=== PATIENT | female | born 2000 | race Two or more races ===

== ENCOUNTER 2024-10-06 02:04 | Emergency (ER) | payer MEDICAID, SELFPAY ==
[2024-10-06 02:07] VITALS: BP 121/76; PULSE 96; RESP 20; TEMP 36.1; O2SAT 98; BMI 28.7
[2024-10-06 02:30] LABS: MANUAL DIFF FLAG NO
[2024-10-06 02:51] LABS: Basophils Absolute Auto 0.1 X10*3/uL (0.0-0.2); Basophils Percent Auto 0.4 % (0-2); Eosinophils Absolute Auto 0.1 X10*3/uL (0.0-0.4); Eosinophils Percent Auto 0.8 % (0-4); Hematocrit 48.5 % (37.0-47.0); Imm Gran Abs Auto 0.07 X10*3/uL (0.00-0.03); Imm Gran Pct Auto 0.5 % (0.0-0.4); Lymphocytes Absolute Auto 1.7 X10*3/uL (1.2-4.9); Lymphocytes Percent Auto 10.9 % (20-40); Mean Corpuscular Hemoglobin 27.7 pg (27.0-33.0); Mean Corpuscular Volume 84.1 fL (80.0-98.0); Mean Platelet Volume 10.2 fL (9.4-12.3); Monocytes Percent Auto 6.5 % (2-11); Neutrophils Absolute Auto 12.4 x10*3/uL (2.0-8.3); Neutrophils Percent Auto 80.9 % (45-73); Platelet Count 385 X10*3/uL (160-400); Red Blood Count 5.77 X10*6/uL (4.20-5.50); Red Cell Distribution Width 13.4 % (11.0-16.0); White Blood Count 15.3 X10*3/uL (4.8-10.8)
[2024-10-06 03:01] LABS: Alanine Aminotransferase 18 U/L (0-31); Alkaline Phosphatase 84 U/L (39-117); Anion Gap 14 (12-20); Aspartate Amino Transferase 18 U/L (5-31); Bilirubin Total 0.7 mg/dL (0.0-1.0); Blood Urea Nitrogen 15 mg/dL (9-16); Calcium 9.9 mg/dL (8.4-10.2); Carbon Dioxide 20 mmol/L (22-29); Chloride 111 mmol/L (96-108); Creatinine Clr Calc Pharmacy 122.2; Estimated Glomerular Filt Rate > 60; Glucose Random 106 mg/dL (60-115); Lipase 17 U/L (8-78); Potassium 3.8 mmol/L (3.3-5.1); Sodium 141 mmol/L (135-145); Total Protein 7.6 g/dL (6.5-8.0)
[2024-10-06 03:11] LABS: Influenza A PCR NEGATIVE (Negative); Influenza B PCR NEGATIVE (Negative); Resp Syncy Virus RNA Qual PCR NEGATIVE (Negative); SARS COV2 PCR INHOUSE NEGATIVE (Negative)
[2024-10-06 04:28] LABS: IDNOW Serial# 6674DD1D
[2024-10-06 04:29] LABS: Appearance Urine Cloudy; Color Urine Dark Yellow; Glucose Urine UA Negative (Negative); Leukocyte Esterase Urine Trace (Negative); Nitrite Urine Negative (Negative); Specific Gravity - Urine >= 1.030 (1.005-1.025); UMIC TRIGGER UACC YES; UPreg QC Valid YES; Urine Blood Small (1+) (Negative); Urine Ketones Trace mg/dL (Negative); Urine Pregnancy NEGATIVE (NEGATIVE); Urine Protein Trace mg/dL (Neg-Trace)
[2024-10-06 04:29] LABS: Strep A Nucleic Acid Positive (Negative)
[2024-10-06 04:34] LABS: Bacteria Urine 1+ (None Seen); RBC Urine >20 /HPF (0-2); Squamous Epithelial Cell Urine 0-2 /HPF (0-2); WBC Urine 0-5 /HPF (0-5)
--- NOTE | 2024-10-06 05:38 | ED.NAVMDI ---
HPI - Nausea/Vomiting/Diarrhea General Chief complaint: Nausea/Vomiting/Diarrhea Stated complaint: vomiting blood, chills Time Seen by Provider: 10/06/24 05:32 Source: patient Mode of arrival: ambulatory Limitations: no limitations History of Present Illness ED Provider: HPI Narrative: Patient with sore throat for last 3 days with cough nausea vomiting for 1 day low-grade fever strep test done which was positive Related Data Previous Rx's ?Medication ?Instructions ?Recorded amoxicillin 875 mg-potassium 1 tab PO BID #20 tabs 10/06/24 clavulanate 125 mg tablet ondansetron 4 mg disintegrating 4 mg PO Q6-8H PRN nausea and 10/06/24 tablet vomiting #7 tabs Allergies Allergy/AdvReac Type Severity Reaction Status Date / Time No Known Allergies Allergy Verified 10/06/24 02:09 Review of Systems Review of Systems: Yes all other systems are reviewed and are negative [facility] Social History Social History Unable to assess alcohol history related to: Unknown Use of substances other than those prescribed or required for medical reasons: No Advance Directives: No Advance Directives Information Provided: Yes Do you have a plan to hurt others: No Plan Physical Exam Vital Signs: Vital Signs: Last Vital Signs Temp 97.0 F 10/06/24 05:53 Pulse 96 10/06/24 05:53 Resp 20 10/06/24 05:53 BP 121/76 10/06/24 05:53 Pulse Ox 98 10/06/24 05:53 O2 Del Method Room Air 10/06/24 05:53 BMI result Body Mass Index 28.7 Appearance: Alert. Oriented X3. No acute distress. Eyes: no pallor or icterus ENT: Pharynx erythematous no exudate. Oral Mucosa moist Neck: Normal inspection. Neck supple. CVS: Normal heart rate and rhythm. Pulses normal. Respiratory: No respiratory distress. Equal air entry bilateral, no wheezing/rales/rhonchi Abd: soft, not tender Skin: Skin warm and dry. Normal skin color. Normal skin turgor. Extremities: No lower extremity edema, no calf tenderness Neuro: Oriented X 3. Medications Administered Discontinued Medications Generic Name Dose Route Start Last Admin Trade Name Freq PRN Reason Stop Dose Admin Amoxicillin/Clavulanate Potassium 875 mg 10/06/24 05:38 10/06/24 05:51 Amoxicillin/Potassium Clav 875 Mg Tablet PO 10/06/24 05:39 875 mg ONCE ONE Administration Ondansetron HCl 4 mg 10/06/24 05:38 10/06/24 05:51 Ondansetron Odt 4 Mg Tab.Darrendis TRANSLINGU 10/06/24 05:39 4 mg ONCE ONE Administration Medical Decision Making Medical Decision Making MDM Narrative: Patient's strep throat will prescribe Augmentin Lab Data MDM Lab Attestation statement: I reviewed the patient's lab results. 10/06/24 02:25 10/06/24 02:26 Labs: Lab Results 10/06/24 10/06/24 10/06/24 Range/Units 02:25 02:26 04:12 WBC 15.3 H (4.8-10.8) X10*3/uL RBC 5.77 H (4.20-5.50) X10*6/uL Hgb 16.0 (12.0-16.0) g/dl Hct 48.5 H (37.0-47.0) % MCV 84.1 (80.0-98.0) fL MCH 27.7 (27.0-33.0) pg MCHC 33.0 (31.0-35.0) g/dl RDW 13.4 (11.0-16.0) % Plt Count 385 (160-400) X10*3/uL MPV 10.2 (9.4-12.3) fL Immature Gran % (Auto) 0.5 H (0.0-0.4) % Neut % (Auto) 80.9 H (45-73) % Lymph % (Auto) 10.9 L (20-40) % [place] % (Auto) 6.5 (2-11) % Eos % (Auto) 0.8 (0-4) % Baso % (Auto) 0.4 (0-2) % Lymph # (Auto) 1.7 (1.2-4.9) X10*3/uL [place] # (Auto) 1.0 (0.1-1.2) X10*3/uL Eos # (Auto) 0.1 (0.0-0.4) X10*3/uL Baso # (Auto) 0.1 (0.0-0.2) X10*3/uL Abs Immat Gran (auto) 0.07 H (0.00-0.03) X10*3/uL Absolute Neuts (auto) 12.4 H (2.0-8.3) x10*3/uL Absolute Nucleated RBC 0.000 (0.0-0.012) X10*3/uL Nucleated RBC % (auto) 0.0 (0.0-0.2) /100WBC Sodium 141 (135-145) mmol/L Potassium 3.8 (3.3-5.1) mmol/L Chloride 111 H (96-108) mmol/L Carbon Dioxide 20 L (22-29) mmol/L Anion Gap 14 (12-20) BUN 15 (9-16) mg/dL Creatinine 0.74 (0.5-1.4) mg/dL Estim Creat Clear Calc 122.2 Estimated GFR > 60 Random Glucose 106 (60-115) mg/dL Calcium 9.9 (8.4-10.2) mg/dL Total Bilirubin 0.7 (0.0-1.0) mg/dL AST 18 (5-31) U/L ALT 18 (0-31) U/L Alkaline Phosphatase 84 (39-117) U/L Total Protein 7.6 (6.5-8.0) g/dL Albumin 4.0 (3.5-5.0) g/dL Lipase 17 (8-78) U/L Urine Color Urine Appearance Urine pH (5.0-9.0) Ur Specific [place] (1.005-1.025) Urine Protein (Neg-Trace) mg/dL Urine Glucose (UA) (Negative) mg/dL Urine Ketones (Negative) mg/dL Urine Blood (Negative) Urine Nitrite (Negative) Ur Leukocyte Esterase (Negative) Urine RBC (0-2) /HPF Urine WBC (0-5) /HPF Ur Squamous Epith Cells (0-2) /HPF Urine Bacteria (None Seen) Hyaline Casts (0-2) /LPF Urine Test (NEGATIVE) Influenza Type A (PCR) NEGATIVE (Negative) Influenza Type B (PCR) NEGATIVE (Negative) RSV RNA Qual (PCR) NEGATIVE (Negative) SARS-CoV-2 RNA (RT-PCR) NEGATIVE (Negative) S. pyogenes GrpA ALBARO Positive A (Negative) 10/06/24 Range/Units 04:24 WBC (4.8-10.8) X10*3/uL RBC (4.20-5.50) X10*6/uL Hgb (12.0-16.0) g/dl Hct (37.0-47.0) % MCV (80.0-98.0) fL MCH (27.0-33.0) pg MCHC (31.0-35.0) g/dl RDW (11.0-16.0) % Plt Count (160-400) X10*3/uL MPV (9.4-12.3) fL Immature Gran % (Auto) (0.0-0.4) % Neut % (Auto) (45-73) % Lymph % (Auto) (20-40) % [place] % (Auto) (2-11) % Eos % (Auto) (0-4) % Baso % (Auto) (0-2) % Lymph # (Auto) (1.2-4.9) X10*3/uL [place] # (Auto) (0.1-1.2) X10*3/uL Eos # (Auto) (0.0-0.4) X10*3/uL Baso # (Auto) (0.0-0.2) X10*3/uL Abs Immat Gran (auto) (0.00-0.03) X10*3/uL Absolute Neuts (auto) (2.0-8.3) x10*3/uL Absolute Nucleated RBC (0.0-0.012) X10*3/uL Nucleated RBC % (auto) (0.0-0.2) /100WBC Sodium (135-145) mmol/L Potassium (3.3-5.1) mmol/L Chloride (96-108) mmol/L Carbon Dioxide (22-29) mmol/L Anion Gap (12-20) BUN (9-16) mg/dL Creatinine (0.5-1.4) mg/dL Estim Creat Clear Calc Estimated GFR Random Glucose (60-115) mg/dL Calcium (8.4-10.2) mg/dL Total Bilirubin (0.0-1.0) mg/dL AST (5-31) U/L ALT (0-31) U/L Alkaline Phosphatase (39-117) U/L Total Protein (6.5-8.0) g/dL Albumin (3.5-5.0) g/dL Lipase (8-78) U/L Urine Color Dark Yellow Urine Appearance Cloudy Urine pH 6.0 (5.0-9.0) Ur Specific [place] >= 1.030 H (1.005-1.025) Urine Protein Trace (Neg-Trace) mg/dL Urine Glucose (UA) Negative (Negative) mg/dL Urine Ketones Trace (Negative) mg/dL Urine Blood Small (1+) H (Negative) Urine Nitrite Negative (Negative) Ur Leukocyte Esterase Trace H (Negative) Urine RBC >20 H (0-2) /HPF Urine WBC 0-5 (0-5) /HPF Ur Squamous Epith Cells 0-2 (0-2) /HPF Urine Bacteria 1+ (None Seen) Hyaline Casts 3-5 (0-2) /LPF Urine Test NEGATIVE (NEGATIVE) Influenza Type A (PCR) (Negative) Influenza Type B (PCR) (Negative) RSV RNA Qual (PCR) (Negative) SARS-CoV-2 RNA (RT-PCR) (Negative) S. pyogenes GrpA ALBARO (Negative) Discharge Plan Discharge Clinical Impression: Acute streptococcal pharyngitis, Vomiting Patient Disposition: Home, Self-Care Instructions: Strep Throat (ED), Acute Nausea and Vomiting (ED) Additional Instructions: Drink plenty of fluids Antibiotic as prescribed Medicine for nausea as prescribed You have strep throat likely the cause for the vomiting Prescriptions: New ondansetron 4 mg tablet,disintegrating 4 mg PO Q6-8H PRN (Reason: nausea and vomiting) Qty: 7 0RF amoxicillin-pot clavulanate 875-125 mg tablet 1 tab PO BID Qty: 20 0RF Stand Alone Forms: Work/School Release Interventions: ED Discharge Assessment Last Done: 10/06/24 05:53 Discharge Date/Time: 10/06/24 05:56 Print Language: Cymro
[2024-10-06] MEDS: Ondansetron ODT 4 MG TAB.RAPDIS TRANSLINGU (05:51)
[2024-10-06] MEDS: Amoxicillin/Potassium Clav 875 MG TABLET PO (05:51)
[2024-10-06 05:53] VITALS: BP 121/76; PULSE 96; RESP 20; TEMP 36.1; O2SAT 98
== END 2024-10-06 05:56 | disposition home or self-care (01) ==
PROVIDERS: Emergency Provider Internal Medicine
DX: J02.0 Streptococcal pharyngitis (principal); R11.2 Nausea with vomiting, unspecified; R05.9 Cough, unspecified; Z03.818 Encounter for observation for suspected exposure to other biological agents ruled out
CPT/HCPCS: 0241U; 80053; 81001; 81025; 83690; 85025; 87651; 99283; 99284

== ENCOUNTER 2024-11-15 15:16 | Emergency (ER) | payer MEDICAID, SELFPAY ==
--- NOTE | ~2024-11-15 | US_ITS ---
CLINICAL HISTORY: R PELVIC PAIN Ultrasound pelvis transabdominal and transvaginal. COMPARISON: None Technique: Real time sonographic imaging, including color-flow imaging, was performed by the plate slitter and inspector. Multiple credit and collections representative static images were saved for review. FINDINGS: Anteverted uterus appears normal and measures 6.5 x 2.4 x 4.3 cm. No uterine fibroids identified. Endometrium: 6 mm, normal. Right ovary appears normal and measures 2.6 x 1.9 x 1.6 cm. Normal color and spectral Doppler. No right adnexal mass identified. Normal appearing physiologic follicles/cysts. Left ovary appears normal and measures 2.7 x 1.4 x 1.6 cm. Normal color and spectral Doppler. No left adnexal mass identified. Normal appearing physiologic follicles/cysts. No free fluid identified in the pelvic cul-de-sac. IMPRESSION: 1. No cause for patient's symptoms identified. No evidence of ovarian torsion. This document has been electronically signed by: Luis Daniel Lowery MD on 11/15/2024 19:37:55
--- NOTE | ~2024-11-15 | US_ITS ---
CLINICAL HISTORY: R PELVIC PAIN Ultrasound pelvis transabdominal and transvaginal. COMPARISON: None Technique: Real time sonographic imaging, including color-flow imaging, was performed by the application analyst. Multiple telemarketing sales representative static images were saved for review. FINDINGS: Anteverted uterus appears normal and measures 6.5 x 2.4 x 4.3 cm. No uterine fibroids identified. Endometrium: 6 mm, normal. Right ovary appears normal and measures 2.6 x 1.9 x 1.6 cm. Normal color and spectral Doppler. No right adnexal mass identified. Normal appearing physiologic follicles/cysts. Left ovary appears normal and measures 2.7 x 1.4 x 1.6 cm. Normal color and spectral Doppler. No left adnexal mass identified. Normal appearing physiologic follicles/cysts. No free fluid identified in the pelvic cul-de-sac. IMPRESSION: 1. No cause for patient's symptoms identified. No evidence of ovarian torsion. This document has been electronically signed by: Luis Daniel Lowery MD on 11/15/2024 19:37:55
--- NOTE | 2024-11-15 15:36 | ED_ITS ---
HPI - Abdominal Pain General Chief Complaint: Vaginal Bleeding Stated Complaint: vag bleed Time Seen by Provider: 11/15/24 18:18 Related Data Previous Rx's ?Medication ?Instructions ?Recorded amoxicillin 875 mg-potassium 1 tab PO BID #20 tabs 10/06/24 clavulanate 125 mg tablet ondansetron 4 mg disintegrating 4 mg PO Q6-8H PRN nausea and 10/06/24 tablet vomiting #7 tabs Allergies Allergy/AdvReac Type Severity Reaction Status Date / Time No Known Allergies Allergy Verified 11/15/24 15:39 [facility] Social History Social History Unable to assess alcohol history related to: Unknown Physical Exam ED Vital Signs: BMI result Body Mass Index 29.7 Course Course Course Narrative: This is a Rapid Medical Exam performed in triage by Rosario Ochoa PA-C. Full HPI, ROS and PE to be performed by primary ED provider. 24yo F w/PMHx cholecystectomy presenting to the ED c/o bright red vaginal bleeding since Tuesday w/clots & assoc lower abdominal pain > right side radiating to back. States when wipes has blood on tissue. LMP 3/14 w/possible + home test at home. went to [facility] yesterday and LWCT PE: abdomen soft w/RLQ/suprapubic ttp. no rebound or guarding. Plan: labs, UA, US Medical Decision Making Lab Data 11/15/24 17:33 11/15/24 17:33 Labs: Lab Results 11/15/24 Range/Units 17:33 WBC 11.9 H (4.8-10.8) X10*3/uL RBC 5.30 (4.20-5.50) X10*6/uL Hgb 14.7 (12.0-16.0) g/dl Hct 43.4 (37.0-47.0) % MCV 81.9 (80.0-98.0) fL MCH 27.7 (27.0-33.0) pg MCHC 33.9 (31.0-35.0) g/dl RDW 13.8 (11.0-16.0) % Plt Count 404 H (160-400) X10*3/uL MPV 9.6 (9.4-12.3) fL Immature Gran % (Auto) 0.3 (0.0-0.4) % Neut % (Auto) 65.0 (45-73) % Lymph % (Auto) 26.2 (20-40) % [place] % (Auto) 6.9 (2-11) % Eos % (Auto) 1.1 (0-4) % Baso % (Auto) 0.5 (0-2) % Lymph # (Auto) 3.1 (1.2-4.9) X10*3/uL [place] # (Auto) 0.8 (0.1-1.2) X10*3/uL Eos # (Auto) 0.1 (0.0-0.4) X10*3/uL Baso # (Auto) 0.1 (0.0-0.2) X10*3/uL Abs Immat Gran (auto) 0.04 H (0.00-0.03) X10*3/uL Absolute Neuts (auto) 7.8 (2.0-8.3) x10*3/uL Absolute Nucleated RBC 0.000 (0.0-0.012) X10*3/uL Nucleated RBC % (auto) 0.0 (0.0-0.2) /100WBC Sodium 142 (135-145) mmol/L Potassium 4.0 (3.3-5.1) mmol/L Chloride 109 H (96-108) mmol/L Carbon Dioxide 24 (22-29) mmol/L Anion Gap 13 (12-20) BUN 14 (9-16) mg/dL Creatinine 0.68 (0.5-1.4) mg/dL Estim Creat Clear Calc 135.2 Estimated GFR > 60 Random Glucose 90 (60-115) mg/dL Calcium 9.4 (8.4-10.2) mg/dL Magnesium 2.2 (1.6-2.6) mg/dL Total Bilirubin 0.2 (0.0-1.0) mg/dL Direct Bilirubin < 0.2 (0.0-0.5) mg/dL AST 20 (5-31) U/L ALT 24 (0-31) U/L Alkaline Phosphatase 98 (39-117) U/L Total Protein 7.3 (6.5-8.0) g/dL Albumin 4.1 (3.5-5.0) g/dL Lipase 21 (8-78) U/L Beta HCG, Quant < 2 mIU/mL Urine Color Yellow Urine Appearance Clear Urine pH 6.5 (5.0-9.0) Ur Specific [place] 1.025 (1.005-1.025) Urine Protein Negative (Neg-Trace) mg/dL Urine Glucose (UA) Negative (Negative) mg/dL Urine Ketones Negative (Negative) mg/dL Urine Blood Negative (Negative) Urine Nitrite Negative (Negative) Ur Leukocyte Esterase Negative (Negative) Chlam trachomat DNA PCR NOT DETECTED (Not Detect.) N.gonorrhoeae DNA (PCR) NOT DETECTED (Not Detect.) Blood Type O Positive Discharge Plan Discharge Clinical Impression: Vaginal bleeding, Dysfunctional uterine bleeding Patient Disposition: Home, Self-Care Instructions: Dysfunctional Uterine Bleeding (ED) Additional Instructions: recommend follow-up with OBGYN and primary care provider. Return to the ED immediately for any abdominal pain, nausea, vomiting, fever, chills, flank pain, worsening vaginal bleeding, or any other concerning symptoms. Ultrasound pelvis transabdominal and transvaginal. COMPARISON: None Technique: Real time sonographic imaging, including color-flow imaging, was performed by the sustainability analyst. Multiple volunteer patient representative static images were saved for review. FINDINGS: Anteverted uterus appears normal and measures 6.5 x 2.4 x 4.3 cm. No uterine fibroids identified. Endometrium: 6 mm, normal. Right ovary appears normal and measures 2.6 x 1.9 x 1.6 cm. Normal color and spectral Doppler. No right adnexal mass identified. Normal appearing physiologic follicles/cysts. Left ovary appears normal and measures 2.7 x 1.4 x 1.6 cm. Normal color and spectral Doppler. No left adnexal mass identified. Normal appearing physiologic follicles/cysts. No free fluid identified in the pelvic cul-de-sac. IMPRESSION: 1. No cause for patient's symptoms identified. No evidence of ovarian torsion. This document has been electronically signed by: Luis Daniel Lowery MD on 11/15/2024 19:37:55 Dictated By: Luis Daniel Lowery MD Signed By: <Electronically signed by Luis Daniel Lowery MD in OV> 11/15/241938 Prescriptions: No Action ondansetron 4 mg tablet,disintegrating 4 mg PO Q6-8H PRN (Reason: nausea and vomiting) Qty: 7 0RF amoxicillin-pot clavulanate 875-125 mg tablet 1 tab PO BID Qty: 20 0RF Referrals: Vazquez Moore MD [Physician] - (dysfunctional urterine bleeding) Stand Alone Forms: Work/School Release Interventions: ED Discharge Assessment Last Done: 11/15/24 20:43 Discharge Date/Time: 11/15/24 20:43 Print Language: Turkish
[2024-11-15 15:37] VITALS: BP 107/65; PULSE 82; RESP 16; TEMP 36.6; O2SAT 97; BMI 29.7
[2024-11-15 17:41] LABS: MANUAL DIFF FLAG NO
[2024-11-15 17:45] LABS: Appearance Urine Clear; Color Urine Yellow; Glucose Urine UA Negative (Negative); Leukocyte Esterase Urine Negative (Negative); Nitrite Urine Negative (Negative); PH 6.5 (5.0-9.0); Specific Gravity - Urine 1.025 (1.005-1.025); Urine Blood Negative (Negative); Urine Ketones Negative (Negative); Urine Protein Negative (Neg-Trace)
[2024-11-15 17:48] LABS: Basophils Absolute Auto 0.1 X10*3/uL (0.0-0.2); Basophils Percent Auto 0.5 % (0-2); Eosinophils Absolute Auto 0.1 X10*3/uL (0.0-0.4); Eosinophils Percent Auto 1.1 % (0-4); Hematocrit 43.4 % (37.0-47.0); Hemoglobin 14.7 g/dl (12.0-16.0); Imm Gran Abs Auto 0.04 X10*3/uL (0.00-0.03); Imm Gran Pct Auto 0.3 % (0.0-0.4); Lymphocytes Absolute Auto 3.1 X10*3/uL (1.2-4.9); Lymphocytes Percent Auto 26.2 % (20-40); Mean Corpuscular HGB Conc 33.9 g/dl (31.0-35.0); Mean Corpuscular Hemoglobin 27.7 pg (27.0-33.0); Mean Corpuscular Volume 81.9 fL (80.0-98.0); Mean Platelet Volume 9.6 fL (9.4-12.3); Monocytes Absolute Auto 0.8 X10*3/uL (0.1-1.2); Monocytes Percent Auto 6.9 % (2-11); Neutrophils Absolute Auto 7.8 x10*3/uL (2.0-8.3); Platelet Count 404 X10*3/uL (160-400); Red Cell Distribution Width 13.8 % (11.0-16.0); White Blood Count 11.9 X10*3/uL (4.8-10.8)
[2024-11-15 18:08] LABS: Alanine Aminotransferase 24 U/L (0-31); Albumin Level 4.1 g/dL (3.5-5.0); Alkaline Phosphatase 98 U/L (39-117); Anion Gap 13 (12-20); Aspartate Amino Transferase 20 U/L (5-31); Bilirubin Direct < 0.2 mg/dL (0.0-0.5); Bilirubin Total 0.2 mg/dL (0.0-1.0); Blood Urea Nitrogen 14 mg/dL (9-16); Calcium 9.4 mg/dL (8.4-10.2); Carbon Dioxide 24 mmol/L (22-29); Chloride 109 mmol/L (96-108); Creatinine Clr Calc Pharmacy 135.2; Estimated Glomerular Filt Rate > 60; Glucose Random 90 mg/dL (60-115); Lipase 21 U/L (8-78); Magnesium 2.2 mg/dL (1.6-2.6); Sodium 142 mmol/L (135-145); Total Protein 7.3 g/dL (6.5-8.0)
[2024-11-15 18:12] LABS: HCG Quantitative < 2 mIU/mL
--- OUTSIDE RECORDS SUMMARY | 2024-11-15 18:16 | XMS_ITS | Clinical Summary ---
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 Name Role Phone Unavailable Primary Care Provider Unavailabl e Social History Tobacco Use Types Packs/Day Years Used Date Smoking Tobacco: Never Assessed Comments Unknown Sex and Gender Information Value Date Recorded Sex Assigned at Not on file Legal Sex Female 3:10 PM EST Gender Identity Not on file Sexual Orientation Not on file Plan of Treatment Health Maintenance Due Date Last Done Comments Gonorrhea/Chlamydia Screening 2001 HPV Vaccines (1 - 3-dose series) 01/21/2016 Meningococcal B Vaccine (1 o f 2 - Standard) 2017 DTaP,Tdap,and Td Vaccines (1 - Tdap) 01/21/2020 Hepatitis B Vaccines (1 of 3 - 19+ 3-dose series) 01/21/2020 Cervical Cancer Screening: P ap Smear 2022 Depression Screening 07/07/2022 HIV Screening 07/07/2022 Hepatitis C Screening 07/07/2022 Social Influencers of Health Screening 07/07/2022 COVID-19 Vaccine (1 - 2023-2 5 season) 2024 Influenza Vaccine (Season Ended) 2025 HIB Vaccines Aged Out No longer eligi ble based on patient's age to complete this topic Hepatitis A Vaccines Aged Out No long er eligible based on patient's age to complete this topic IPV Vaccines Aged Out No longer eligi ble based on patient's age to complete this topic MMR Vaccines Aged Out No longer eligi ble based on patient's age to complete this topic Meningococcal ACWY Vaccine Aged Out N o longer eligible based on patient's age to complete this topic Pneumococcal Vaccine: Pediat rics (0 to 5 Years) and At-Risk Patients (6 to 64 Years) Aged Out No longer eligible b ased on patient's age to complete this topic RSV Immunization Patients Un monique 20 months Aged Out No longer eligible b ased on patient's age to complete this topic Varicella Vaccines Aged Out No longer eligible based on patient's age to complete this topic
--- NOTE | 2024-11-15 18:37 | ED_ITS ---
HPI - General Adult General Chief complaint: Vaginal Bleeding Stated complaint: vag bleed Time Seen by Provider: 11/15/24 18:18 Source: patient Mode of arrival: ambulatory Limitations: no limitations History of Present Illness ED Provider: Pako Mackenzie [facility] narrative: 24-year-old female history of hypothyroidism presents to ED for vaginal bleeding for 4 days with blood clots. Patient states she is trying to get . Patient states nausea and slight lower abdominal cramping. Patient denies any recent trauma. Related Data Previous Rx's ?Medication ?Instructions ?Recorded amoxicillin 875 mg-potassium 1 tab PO BID #20 tabs 10/06/24 clavulanate 125 mg tablet ondansetron 4 mg disintegrating 4 mg PO Q6-8H PRN nausea and 10/06/24 tablet vomiting #7 tabs Allergies Allergy/AdvReac Type Severity Reaction Status Date / Time No Known Allergies Allergy Verified 11/15/24 15:39 Review of Systems 2 Review of Systems: Vaginal bleeding Yes all other systems are reviewed and are negative PMFSH Social History Social History Unable to assess alcohol history related to: Unknown Physical Exam ED Vital Signs: Vital Signs - 24 hr 11/15/24 15:37 11/15/24 18:55 Temperature 97.9 F 97.3 F Pulse Rate 82 62 Respiratory Rate 16 12 Blood Pressure 107/65 97/62 Pulse Oximetry 97 100 Oxygen Delivery Method Room Air Room Air BMI result Body Mass Index 29.7 Const General: cooperative, healthy appearing, comfortable, no acute distress, well developed, alert, awake and Physically active Orientation/consciousness: patient oriented x3 HENMT Head: Yes normal to inspection, Yes No palpable skull fracture present, Yes normocephalic, Yes atraumatic and No abrasion Eyes General: appearance normal, both eyes and all related structures Neck Neck: Yes normal visual inspection, Yes full ROM, Yes no lymphadenopathy, Yes no meningeal signs, Yes trachea midline, Yes supple, No anterior neck swelling and No tender Chest Chest palpation & inspection: normal inspection of the chest and normal palpation of entire chest wall Resp Effort & Inspection: normal respiratory effort and able to speak in complete sentences Auscultation: clear to auscultation bilaterally Cardio Jugular venous distension: no JVD Heart sounds: S1 normal heart sound present and S2 normal heart sound present GI Inspection: Yes normal to inspection Palpation (GI): Soft to palpation, not firm, nontender, no guarding and not rigid General: Yes no CVA tenderness External Female Exam: normal external appearance Speculum Exam - Vagina: normal appearance of the vagina and vaginal bleeding (slight blood in vaginal vault and from cervix) Speculum Exam - Cervix: normal appearance of the cervix OB/external & speculum: vaginal bleeding (slight blood in vaginal vault and from cervix) Back/Spine/Pelvis Back: no CVA tenderness and No back tenderness Skin General skin exam: no rashes or lesions noted, elasticity normal and turgor normal Neuro General: patient oriented x3, gait normal, tone normal, moves all extremities, Normal light touch and pain sensation, no meningeal signs, no focal motor deficits, CN's II-XI intact bilaterally and normal sensation to monofilament Extrem General: Yes normal to inspection, Yes full ROM and Yes capillary refill normal Psych Appearance: grossly normal, well kempt and not disheveled Medical Decision Making Medical Decision Making [facility] Narrative: 24-year-old female presents to ED for vaginal bleeding with blood clots for the past 4 days. Beta hCG is negative. Vital signs stable. Patient is hemodynamically stable. Ultrasound pending. 8:10pm: Pelvic exam benign. Ultrasound negative for fibroids ovarian cysts. Patient informed to follow up with OBGYN. Not suspecting hemorrhaging. history physical exam diagnostic negative for signs of fibroids, ovarian rupture, or ectopic . patient explained worrisome signs and informed to return to the ED immediately. Differential Diagnosis Differential Diagnoses: The differential diagnosis associated with the presentation includes ( Ectopic , ovarian cysts, fibroid, UTI, kidney stone) Admission/Observation Consideration of admission/observation: Escalation of care including admission/observation considered Lab Data [facility] Lab Attestation statement: I reviewed the patient's lab results. 11/15/24 17:33 11/15/24 17:33 Labs: Lab Results 11/15/24 Range/Units 17:33 WBC 11.9 H (4.8-10.8) X10*3/uL RBC 5.30 (4.20-5.50) X10*6/uL Hgb 14.7 (12.0-16.0) g/dl Hct 43.4 (37.0-47.0) % MCV 81.9 (80.0-98.0) fL MCH 27.7 (27.0-33.0) pg MCHC 33.9 (31.0-35.0) g/dl RDW 13.8 (11.0-16.0) % Plt Count 404 H (160-400) X10*3/uL MPV 9.6 (9.4-12.3) fL Immature Gran % (Auto) 0.3 (0.0-0.4) % Neut % (Auto) 65.0 (45-73) % Lymph % (Auto) 26.2 (20-40) % [place] % (Auto) 6.9 (2-11) % Eos % (Auto) 1.1 (0-4) % Baso % (Auto) 0.5 (0-2) % Lymph # (Auto) 3.1 (1.2-4.9) X10*3/uL [place] # (Auto) 0.8 (0.1-1.2) X10*3/uL Eos # (Auto) 0.1 (0.0-0.4) X10*3/uL Baso # (Auto) 0.1 (0.0-0.2) X10*3/uL Abs Immat Gran (auto) 0.04 H (0.00-0.03) X10*3/uL Absolute Neuts (auto) 7.8 (2.0-8.3) x10*3/uL Absolute Nucleated RBC 0.000 (0.0-0.012) X10*3/uL Nucleated RBC % (auto) 0.0 (0.0-0.2) /100WBC Sodium 142 (135-145) mmol/L Potassium 4.0 (3.3-5.1) mmol/L Chloride 109 H (96-108) mmol/L Carbon Dioxide 24 (22-29) mmol/L Anion Gap 13 (12-20) BUN 14 (9-16) mg/dL Creatinine 0.68 (0.5-1.4) mg/dL Estim Creat Clear Calc 135.2 Estimated GFR > 60 Random Glucose 90 (60-115) mg/dL Calcium 9.4 (8.4-10.2) mg/dL Magnesium 2.2 (1.6-2.6) mg/dL Total Bilirubin 0.2 (0.0-1.0) mg/dL Direct Bilirubin < 0.2 (0.0-0.5) mg/dL AST 20 (5-31) U/L ALT 24 (0-31) U/L Alkaline Phosphatase 98 (39-117) U/L Total Protein 7.3 (6.5-8.0) g/dL Albumin 4.1 (3.5-5.0) g/dL Lipase 21 (8-78) U/L Beta HCG, Quant < 2 mIU/mL Urine Color Yellow Urine Appearance Clear Urine pH 6.5 (5.0-9.0) Ur Specific [place] 1.025 (1.005-1.025) Urine Protein Negative (Neg-Trace) mg/dL Urine Glucose (UA) Negative (Negative) mg/dL Urine Ketones Negative (Negative) mg/dL Urine Blood Negative (Negative) Urine Nitrite Negative (Negative) Ur Leukocyte Esterase Negative (Negative) Chlam trachomat DNA PCR NOT DETECTED (Not Detect.) N.gonorrhoeae DNA (PCR) NOT DETECTED (Not Detect.) Blood Type O Positive Independent Interpretation I performed an independent interpretation of an: Ultrasound Radiology Impression Discussion of test interpretation with radiology: I have reviewed the radiologist's reading. Independent Historian Clinical information obtained from an independent historian. History obtained from or confirmed by: Other ( patient) Discharge Plan Discharge Clinical Impression: Vaginal bleeding, Dysfunctional uterine bleeding Patient Disposition: Home, Self-Care Instructions: Dysfunctional Uterine Bleeding (ED) Additional Instructions: recommend follow-up with OBGYN and primary care provider. Return to the ED immediately for any abdominal pain, nausea, vomiting, fever, chills, flank pain, worsening vaginal bleeding, or any other concerning symptoms. Ultrasound pelvis transabdominal and transvaginal. COMPARISON: None Technique: Real time sonographic imaging, including color-flow imaging, was performed by the correctional casework specialist. Multiple telecommunications sales representative static images were saved for review. FINDINGS: Anteverted uterus appears normal and measures 6.5 x 2.4 x 4.3 cm. No uterine fibroids identified. Endometrium: 6 mm, normal. Right ovary appears normal and measures 2.6 x 1.9 x 1.6 cm. Normal color and spectral Doppler. No right adnexal mass identified. Normal appearing physiologic follicles/cysts. Left ovary appears normal and measures 2.7 x 1.4 x 1.6 cm. Normal color and spectral Doppler. No left adnexal mass identified. Normal appearing physiologic follicles/cysts. No free fluid identified in the pelvic cul-de-sac. IMPRESSION: 1. No cause for patient's symptoms identified. No evidence of ovarian torsion. This document has been electronically signed by: Luis Daniel Lowery MD on 11/15/2024 19:37:55 Dictated By: Luis Daniel Lowery MD Signed By: <Electronically signed by Luis Daniel Lowery MD in OV> 11/15/241938 Prescriptions: No Action ondansetron 4 mg tablet,disintegrating 4 mg PO Q6-8H PRN (Reason: nausea and vomiting) Qty: 7 0RF amoxicillin-pot clavulanate 875-125 mg tablet 1 tab PO BID Qty: 20 0RF Referrals: Vazquez Moore MD [Physician] - (dysfunctional urterine bleeding) Stand Alone Forms: Work/School Release Interventions: ED Discharge Assessment Last Done: 11/15/24 20:43 Discharge Date/Time: 11/15/24 20:43 Print Language: Montserratian
[2024-11-15 18:55] VITALS: BP 97/62; PULSE 62; RESP 12; TEMP 36.3; O2SAT 100
[2024-11-15 20:43] VITALS: BP 97/62; PULSE 62; RESP 12; TEMP 36.3; O2SAT 100
[2024-11-16 03:56] LABS: CT PCR NOT DETECTED (Not Detect.); NG PCR NOT DETECTED (Not Detect.)
== END 2024-11-15 20:43 | disposition home or self-care (01) ==
PROVIDERS: Physician Assistant; Emergency Provider Emergency Medicine Emergency Medical Services
DX: N93.9 Abnormal uterine and vaginal bleeding, unspecified (principal); N93.8 Other specified abnormal uterine and vaginal bleeding; R11.0 Nausea; Z79.899 Other long term (current) drug therapy
CPT/HCPCS: 36415; 76830; 76856; 80048; 80076; 81003; 83690; 83735; 84702; 85025; 86900; 86901; 87491; 87591; 93975; 99283; 99284

== ENCOUNTER → 2024-11-15 18:52 | Outpatient (BNV) | payer MEDICAID, SELFPAY | PROVIDERS: Emergency Provider Emergency Medicine Emergency Medical Services; Visit Provider Radiology Diagnostic Radiology | DX: R10.2 Pelvic and perineal pain (principal) | CPT/HCPCS: 76830; 76856; 93975 ==